=== PATIENT | male | born 1945 | race Caucasian/White ===

== ENCOUNTER 2017-02-01 16:51 | Emergency (ER) | payer OTHER ==
--- NOTE | ~2017-02-01 | EKG ---
PATIENT: WELLINGTON FUNES UNIT #: [id number] Ventricular Rate: 102 BPM Atrial Rate: 102 BPM QRS Duration: 84 ms Q-T Interval: 324 ms QTC Calculation(Bezet): 422 ms Calculated R Clayton: 9 degrees Calculated T Clayton: 50 degrees Diagnosis Line: Normal sinus rhythm with frequent Premature atrial Diagnosis Line: complexes Diagnosis Line: Borderline ECG Diagnosis Line: When compared with ECG of 28-APR-2015 06:04, Diagnosis Line: No significant change was found Diagnosis Line: Confirmed by LUIZ BLACKWELL MD ([id number]) on 02/03/2017 Diagnosis Line: 2:54:48 PM INTERPRETING MD: RISHI CASTANEDA
--- NOTE | ~2017-02-01 | CT71 ---
[facility] A Service of [facility] RADIOLOGY TEXT RESULTS PATIENT: WELLINGTON FUNES LOCATION: [facility] : 43 UNIT #: [id number] AGE: [address]: Eliseo Rodriguez MD SEX: M ORDER DR: [id number] [facility] [address] [place] [address] [place], [place] [address] [id number] E MR#: [id number] Acc #: [id number] NAME: WELLINGTON FUNES. : 1945 SEX: M STUDY DATE/TIME: 02/01/2017 20:55 UNIT: [facility] ROOM: STUDY DESCRIPTION: CT Head Wo Contrast Attending Physician: Eliseo Rodriguez M.D. Ordering Physician: Eliseo Rodriguez M.D. Primary Care Physician: Compa De La O M.D. MEDICAL IMAGING REPORT This report is preliminary unless electronic signature is present EXAM CT head. INDICATIONS Increased confusion for 1 day. Headache and dizziness for 2-3 weeks. Seizure history. Prior stroke. TECHNIQUE CT of the head without contrast. This CT exam was performed with one or more of the following radiation dose reduction techniques: automatic exposure control, adjustment of mA and/or kV according to patient size, and iterative reconstruction. COMPARISON CT of head, 04/28/2015. FINDINGS No acute intracranial hemorrhage, mass lesion, or acute infarct. There is generalized global cerebral atrophy. There is an area of encephalomalacia in the left occipital lobe which is unchanged. There is a right parietal approach ventriculostomy catheter. The catheter tip terminates over the anterior right ventricle. Size and configuration of the ventricles is unchanged. No extraaxial collections. No acute osseous abnormalities. IMPRESSION 1. No acute intracranial findings. No interval change. 2. Generalized atrophy and chronic small vessel changes. 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 3. Right parietal approach ventriculostomy catheter. Size and configuration of the ventricles have not significantly changed. [facility] A Service of [facility] RADIOLOGY TEXT RESULTS PATIENT: WELLINGTON FUNES LOCATION: [facility] : 41 UNIT #: [id number] AGE: [address]: Eliseo Rodriguez MD SEX: M ORDER DR: Dictated by... King Belle M.D. THIS IS AN ELECTRONICALLY VERIFIED REPORT King Belle M.D. at 02/02/2017 8:01 PM HARLEEN/huy TD: 02/02/2017 17:00 JOB #: [id number] MEDICAL IMAGING REPORT Page 1 of 1 COPY
--- NOTE | ~2017-02-01 | CR72 ---
[facility] A Service of [facility] RADIOLOGY TEXT RESULTS PATIENT: WELLINGTON FUNES LOCATION: [facility] : 43 UNIT #: [id number] AGE: [address]: Eliseo Rodriguez MD SEX: M ORDER DR: [id number] [facility] [address] [place], [place] [address] [id number] E MR#: [id number] Acc #: [id number] NAME: WELLINGTON FUNES. : 1945 SEX: M STUDY DATE/TIME: 02/01/2017 18:50 UNIT: [facility] ROOM: STUDY DESCRIPTION: CR Chest Single View Portable Attending Physician: Eliseo Rodriguez M.D. Ordering Physician: Eliseo Rodriguez M.D. Primary Care Physician: Compa De La O M.D. MEDICAL IMAGING REPORT This report is preliminary unless electronic signature is present EXAM AP portable chest 02/01/2017 at 1850. HISTORY Chest pain and shortness breath today. COMPARISON AP portable chest, 04/28/2015. FINDINGS No acute airspace disease. Normal heart size. Presumed [employer] shunt courses over the right hemithorax. No pleural effusion. No acute osseous abnormality. No pneumothorax. IMPRESSION No acute cardiopulmonary findings. Dictated by... Lachelle Kapoor M.D. THIS IS AN ELECTRONICALLY VERIFIED REPORT Lachelle Kapoor M.D. at 02/04/2017 8:38 AM REGINA/munira TD: 02/02/2017 14:42 JOB #: [id number] MEDICAL IMAGING REPORT Page 1 of 1 COPY
[~2017-02-01 16:51] MED LIST: AMARYL PO; ATIVAN0.5 M1 PO; FLOMAX0.4 M1 PO; KEPPRA500 MG PO; PLAVIX PO; PRAVACHOL PO; VIMPAT100 MG DOB
[2017-02-01 18:50] LABS: BASOPHIL# 0.1 X10e3 (0-0.3); BASOPHIL% 0.9 % (0-2.5); EOSINOPHIL# 0.7 X10e3 (0-0.7); EOSINOPHIL% 7.1 % (0.0-7.0); HEMATOCRIT 33.7 % (38.0-50.0); HEMOGLOBIN 11.2 gm/dL (13.0-16.0); LYMPHOCYTE# 1.7 X10e3 (1.0-3.5); LYMPHOCYTE% 16.9 % (17.0-45.0); MEAN CELL VOLUME 85.2 FL (83-96); MEAN CORPUSCULAR HEMOGLOBIN 28.3 PG (28-34); MEAN CORPUSCULAR HGB CONC 33.3 g/dL (30-36); MEAN PLATELET VOLUME 8.5 FL (6.5-11.5); MONOCYTE# 0.8 X10e3 (0-1.0); MONOCYTE% 7.6 % (3.0-12.0); NEUTROPHIL# 6.9 X10e3 (1.5-7.1); NEUTROPHIL% 67.5 % (40-75); PLATELET COUNT 265 X10e3 (140-420); RED BLOOD COUNT 3.95 X10e (3.90-5.60); RED CELL DISTRIBUTION WIDTH 15.4 % (11.0-15.5); WHITE BLOOD COUNT 10.2 X10e3 (4.0-10.5)
[2017-02-01 18:51] LABS: DIFF IND NO
[2017-02-01 19:22] LABS: POC - CKMB <1.0 ng/mL (0.0-7.9); POC - TROPONIN <0.05 ng/mL (<=0.05)
[2017-02-01 19:40] LABS: POC - CKMB <1.0 ng/mL (0.0-7.9); POC - TROPONIN <0.05 ng/mL (<=0.05)
[2017-02-01 21:11] LABS: ALBUMIN SERUM 3.6 g/dL (3.5-5.0); BILIRUBIN, DIRECT 0.1 mg/dL (0.0-0.2); BILIRUBIN,INDIRECT 0.3 mg/dL (0.0-0.9); BILIRUBIN,TOTAL 0.4 mg/dL (0.2-2.0); CREATININE SERUM 1.5 mg/dL (0.6-1.4); GLOM FILT RATE Estimated 45.6 mL/min (>60); POTASSIUM 4.1 mmol/L (3.5-5.1); PROTEIN TOTAL SERUM 6.7 g/dL (6.0-8.3)
== END 2017-02-01 22:10 | disposition home or self-care (01) ==
LOC: CED 16:51
PROVIDERS: Emergency Medicine
DX: R07.89 Other chest pain (principal); R42 Dizziness and giddiness; E11.9 Type 2 diabetes mellitus without complications; I10 Essential (primary) hypertension; Z86.73 Personal history of transient ischemic attack (TIA), and cerebral infarction without residual deficits; Z79.899 Other long term (current) drug therapy; Z79.84 Long term (current) use of oral hypoglycemic drugs
CPT/HCPCS: 70450; 71010; 80048; 80076; 82553; 83880; 84484; 85025; 93005; 99285